=== PATIENT | male | born 1990 | race African-American/Black ===

== ENCOUNTER 2016-07-20 16:14 | Emergency (ER) | payer SELFPAY ==
[~2016-07-20] VITALS: Ht 182.9 cm; Wt 77.3 kg
[2016-07-20 16:19] VITALS: BP 132/82; PULSE 56; TEMP 97.9
[2016-07-20] MEDS ORDERED: ULTRAM 50MG TAB50 MG PO (16:41)
[2016-07-20] MEDS ORDERED: AMOXICILLIN 50500 MG PO (16:41)
== END 2016-07-20 16:48 | disposition home or self-care (01) ==
LOC: COL.ER 16:14
DX: K08.89 Other specified disorders of teeth and supporting structures (principal); F17.210 Nicotine dependence, cigarettes, uncomplicated